=== PATIENT | male | born 1980 | race Caucasian/White ===

== ENCOUNTER 2022-06-01 23:50 | Emergency (ER) | payer MEDICARE ==
[~2022-06-01] VITALS: Ht 172.7 cm; Wt 111.1 kg
== END 2022-06-02 06:13 | disposition home or self-care (01) ==
LOC: ER 23:50
DX: F20.9 Schizophrenia, unspecified (principal); Z88.8 Allergy status to other drugs, medicaments and biological substances; Z59.00 Homelessness unspecified
CPT/HCPCS: 99283